=== PATIENT | female | born 1990 | race Caucasian/White ===

== ENCOUNTER 2016-12-01 05:52 | Emergency (ER) | payer SELFPAY ==
[~2016-12-01] VITALS: Ht 154.9 cm; Wt 44.1 kg
[2016-12-01 05:59] VITALS: TEMP 97.3
[2016-12-01 06:44] LABS: BASO # 0.1 (0.0-0.2); BASO % 0.4 % (0.0-2.0); EOS # 0.1 (0.0-0.7); EOS % 0.5 % (0-4.0); GRAN # 11.1 (1.4-6.5); GRAN % 82.4 % (42.2-75.2); HEMATOCRIT 37.7 % (37.0-47.0); HEMOGLOBIN 12.5 g/dl (12.5-16.0); LYMPH # 1.8 (1.2-3.4); MEAN CELL VOLUME 89 fl (80.0-100.0); MEAN CORPUSCULAR HEMOGLOBIN 29 pg (27.0-31.0); MEAN CORPUSCULAR HGB CONC 33 g/dl (33.0-37.0); MEAN PLATELET VOLUME 10.9 fl (7.4-10.4); MONO # 0.5 (0.1-0.6); MONO % 3.4 % (1.7-9.3); PLATELET COUNT 234 K/mm3 (130-400); RED BLOOD COUNT 4.25 M/mm3 (4.10-5.30); REDCELL DISTRIBUTION WIDTH-CV 11.9 % (11.5-14.5); WHITE BLOOD COUNT 13.5 K/mm3 (4.8-10.8)
[2016-12-01 06:46] LABS: ALBUMIN 4.3 gm/dL (3.5-5.0); BILIRUBIN,TOTAL 0.4 mg/dL (0.0-1.0); CALCIUM 9.2 mg/dL (8.4-10.2); CREATININE, serum 0.69 mg/dL (0.52-1.25); POTASSIUM 3.5 mmol/L (3.4-5.0); TOTAL PROTEIN 7.3 gm/dL (6.4-8.2)
[2016-12-01] MEDS ORDERED: ZOFRAN 4MG T4 MG/TAB PO (07:13)
[2016-12-01 07:29] LABS: MAGNESIUM 1.8 mg/dL (1.6-2.3); PHOSPHOROUS 2.5 mg/dL (2.5-4.5)
[2016-12-01 08:25] LABS: PH 6 (5-8); SQUAMOUS EPITHELIAL 20-50 /hpf; URINE APPEARANCE Cloudy; URINE BACTERIA Rare /hpf; URINE BILIRUBIN Negative (NEGATIVE); URINE BLOOD Negative (NEGATIVE); URINE COLOR Yellow; URINE GLUCOSE Negative (NEGATIVE); URINE KETONE 2+ (NEGATIVE); URINE UROBILINOGEN Negative (NEGATIVE); URINE WBC 0-2 /hpf
[2016-12-01 09:43] VITALS: BP 106/50; PULSE 70
== END 2016-12-01 09:46 | disposition home or self-care (01) ==
LOC: COL.ER 05:52
PROVIDERS: Emergency Medicine
DX: R10.13 Epigastric pain (principal); R11.2 Nausea with vomiting, unspecified; K21.9 Gastro-esophageal reflux disease without esophagitis; Z87.19 Personal history of other diseases of the digestive system
CPT/HCPCS: J2405; J2550; J3010; J7030; J7040

== ENCOUNTER 2018-05-11 06:45 | Observation (INO) | payer SELFPAY ==
[~2018-05-11] VITALS: Ht 154.9 cm; Wt 49.0 kg
[~2018-05-11 06:45] MED LIST: ZOFRAN 4MG T4 MG/TAB PO
[2018-05-11] MEDS ORDERED: PRILOSEC 20MG20 MG PO (07:05)
[2018-05-11] MEDS ORDERED: YASMIN 3 MG-0.01 TAB PO (07:06)
[2018-05-11 07:36] LABS: BASO % 0.3 % (0.0-2.0); EOS % 0.2 % (0-4.0); GRAN # 10.2 (1.4-6.5); GRAN % 86.2 % (42.2-75.2); HEMATOCRIT 38.3 % (37.0-47.0); HEMOGLOBIN 12.7 g/dl (12.5-16.0); LYMPH # 1.2 (1.2-3.4); MEAN CELL VOLUME 86 fl (80.0-100.0); MEAN CORPUSCULAR HEMOGLOBIN 29 pg (27.0-31.0); MEAN CORPUSCULAR HGB CONC 33 g/dl (33.0-37.0); MEAN PLATELET VOLUME 11.2 fl (7.4-10.4); MONO # 0.3 (0.1-0.6); MONO % 2.9 % (1.7-9.3); PLATELET COUNT 195 K/mm3 (130-400); RED BLOOD COUNT 4.45 M/mm3 (4.10-5.30); REDCELL DISTRIBUTION WIDTH-CV 12.7 % (11.5-14.5)
[2018-05-11 07:53] LABS: ALANINE AMINOTRANSFERASE 12 U/L (9-52); ALBUMIN 4.4 gm/dL (3.5-5.0); ALKALINE PHOSPHATASE 56 U/L (50-136); ANION GAP 11 mmol/L (7-16); AST,SGOT 18 U/L (15-37); BILIRUBIN,TOTAL 0.2 mg/dL (0.0-1.0); BLOOD UREA NITROGEN 14 mg/dL (7-17); CALCIUM 9.2 mg/dL (8.4-10.2); CARBON DIOXIDE 23 mmol/L (22-30); CHLORIDE 104 mmol/L (98-107); CREATININE, serum 0.68 mg/dL (0.52-1.25); GLUCOSE 156 mg/dL (74-106); LIPASE 56 U/L (23-300); POTASSIUM 3.6 mmol/L (3.4-5.0); SODIUM 138 mmol/L (137-145); TOTAL PROTEIN 7.6 gm/dL (6.4-8.2)
[2018-05-11 07:54] LABS: C-REACTIVE PROTEIN < 0.5 mg/dL (0.0-0.9)
[2018-05-11 08:51] LABS: COLLECTION METHOD CLEAN CATCH
[2018-05-11 08:56] LABS: MUCOUS Present /lpf; PH 5 (5-8); SQUAMOUS EPITHELIAL 0-2 /hpf; URINE APPEARANCE Hazy; URINE BACTERIA None Seen /hpf; URINE BILIRUBIN Negative (NEGATIVE); URINE BLOOD Negative (NEGATIVE); URINE COLOR Yellow; URINE GLUCOSE Negative (NEGATIVE); URINE KETONE 2+ (NEGATIVE); URINE LEUKOCYTE ESTERASE Negative (NEGATIVE); URINE NITRATE Negative (NEGATIVE); URINE PROTEIN(semi-quant) Negative (NEGATIVE); URINE RBC 0-2 /hpf; URINE UROBILINOGEN Negative (NEGATIVE)
[2018-05-11 13:13] VITALS: BP 103/58; PULSE 73; TEMP 99
[2018-05-11 16:17] VITALS: BP 114/56; PULSE 54; TEMP 99.7
--- NOTE | 2018-05-11 17:00 | NUR ---
Arrived to the room at this time. Initial assessment completed. Dr. Muhammad and Dr. Vasquez here to assess the patient. Plan for IVF, medication intervention and EGD in the am at 0730. Tomasz Cash is at the bedside and the patient is resting.
[2018-05-11 18:54] VITALS: BP 99/59; PULSE 75; TEMP 98.8
--- NOTE | 2018-05-11 19:38 | NUR ---
Report given to GLENDY Cuba to resume care.
--- NOTE | 2018-05-11 19:40 | NUR ---
Resting in bed with boyfriend at bedside. Assessment complete. Lungs clear. Heart sounds normal. Bowels active x4. Pulses strong throughout. No edema noted. Denies pain at this time. Denies needs. Call light in reach.
[2018-05-11 21:46] LABS: TRICYCLIC ANTIDEPRESS URINE NEGATIVE
--- NOTE | 2018-05-11 23:00 | NUR ---
Resting in bed. Provided with reglan. Patient states she would like to wait on EGD until talking with social workers in AM regarding cost of procedure. Denies other needs at this time. Call light in reach.
[2018-05-11 23:11] VITALS: BP 105/60; PULSE 82; TEMP 98.1
[2018-05-11 23:24] VITALS: BP 112/74; PULSE 65; TEMP 99.4
[2018-05-12] VITALS (7 sets, daily range): BP systolic 92–138; BP diastolic 47–80; PULSE 55–72; TEMP 97.5–99.1
--- NOTE | 2018-05-12 03:30 | NUR ---
DIGITAL COMMENTATOR reports patient retching, without emesis. Upon assessment. Patient sitting in bed rocking. Reports increased nausea. Provided basin with water to rinse mouth. Receiving schedule medications as ordered. Retching resolved at this time. Denies other needs. Call light in reach.
--- NOTE | 2018-05-12 04:30 | NUR ---
Patient reports continued retching without emesis. Provided reglan as order. Will monitor.
[2018-05-12 06:30] LABS: BASO % 0.3 % (0.0-2.0); GRAN # 6.9 (1.4-6.5); HEMOGLOBIN 11.3 g/dl (12.5-16.0); LYMPH # 1.6 (1.2-3.4); LYMPH % 17.1 % (20.0-51.0); MEAN CELL VOLUME 86 fl (80.0-100.0); MEAN CORPUSCULAR HEMOGLOBIN 29 pg (27.0-31.0); MEAN CORPUSCULAR HGB CONC 33 g/dl (33.0-37.0); MEAN PLATELET VOLUME 12.3 fl (7.4-10.4); MONO # 0.8 (0.1-0.6); MONO % 8.2 % (1.7-9.3); PLATELET COUNT 178 K/mm3 (130-400); RED BLOOD COUNT 3.95 M/mm3 (4.10-5.30); REDCELL DISTRIBUTION WIDTH-CV 12.9 % (11.5-14.5)
[2018-05-12 06:42] LABS: HEMATOCRIT 33.9 % (37.0-47.0)
[2018-05-12 06:53] LABS: CALCIUM 8.6 mg/dL (8.4-10.2); CREATININE, serum 0.62 mg/dL (0.52-1.25); POTASSIUM 3.3 mmol/L (3.4-5.0)
--- NOTE | 2018-05-12 07:28 | NUR ---
Dr. Balderrama notified at 0645 patient does not want to do EGD until speaking with social work case manager regarding cost of procedure. Report given to GLENDY Zhu. Patient nausous throughout night. Given zofran, benadryl, phenergan, and reglan as ordered. Resting in bed this AM with boyfriend at bedside. Call light in reach.
--- NOTE | 2018-05-12 08:10 | NUR ---
Pt lying in bed with eyes closed, awakens to verbal stimuli. Pt complaining of nausea. Medication administered. Morning assessment completed, pt denies any pain, breathing even and unlabored. Pt wants to speak with marriage and family social worker about help with paying for medical bills, very worried about paying because she has no insurance. Will let marriage and family social worker know. Call light in reach.
--- NOTE | 2018-05-12 08:45 | NUR ---
This Rn performed physical assessment, asked about her history with this nausea and use of cannaboids. Pt states she used to "use ignitable marijuanna but I quit that around when I had the fundoplication in [place]". Since then she reports vaping and using concentrated substance. She used to vape 3-4 times in the morning and 3-4 in the evening for her nausea that was still present, then pt stated, "I've cut back significantly, now I only do 1-2 in the morning and 3-4 in the evening". She reports changing her control from Madalyn for her ovarian cysts to Nicolette 21, and thinks her current condition is due to symptoms listed under this medication. pt grew somewhat agitated when this RN suggested the marijuana could be playing a role in her medical status, she stated, " I know it's not that because I've stopped it before and with home tests I know it only takes one week to get out of my system. Also everyone says a hot shower will help nausea if it's caused by pot, and my hot showers didn't make any difference". boyfriend at bedside agrees, and states,"our current usage is nothing compared to what we used to intake, and we doubt its the marijuana or else we would have had these issues earlier when we were consuming so much more". No further needs or questions, vitals stable, will continue to monitor.
--- NOTE | 2018-05-12 14:27 | NUR ---
ZAIN met with patient about discharge planning. Patient is a [employer] student and lives here in [place] with 3 roommates. Patient utilizes [facility] for primary care and she obtains prescriptions from [facility]. Patient does not use any home health services or DME. ZAIN inquired if patient would like ZAIN to inform [facility] that she is hospitalized. Patient reports she would. ZAIN then contacted [facility] and informed them of patient being hospitalzed. ZAIN does not anticipate any discharge needs.
--- NOTE | 2018-05-12 14:55 | NUR ---
Pt called about pump beeping, pt in bed dry heaving. Pump had been beeping soon after start of potassium 40 min ago. Flushed site and wrapped with coban. Reminded to hit call light as soon as beeping begins. Will continue to monitor.
--- NOTE | 2018-05-12 15:57 | NUR ---
This Rn has reviewed documentation for Bailey Goodrich and agrees with findings
--- NOTE | 2018-05-12 18:20 | NUR ---
Spoke with pt about EGD at noon tomorrow. Pt agreed to procedure, informed on phone.
--- NOTE | 2018-05-12 19:00 | NUR ---
Report received from GLENDY Avalos
--- NOTE | 2018-05-12 20:47 | NUR ---
Standing at bedside. Patient nausated with retching no emesis. Provided all schedule medications as ordered. Complains of 6/10 ABD pain. Provided PRN morphine at this time. Assessment complete. Lungs clear. Heart sounds normal. Bowels active x4. Pulses strong throughout. No edema noted. Patient sleepy after infusion of morphine. Denies other needs. Will closely monitor.
--- NOTE | 2018-05-12 23:30 | NUR ---
Resting in bed. Vs taken. Denies needs at this time. Call light in reach.
--- NOTE | 2018-05-13 01:55 | NUR ---
Resting in bed asleep with boyfriend at bedside. Phenergan started at this time.
[2018-05-13 03:29] VITALS: BP 115/66; PULSE 55; TEMP 98.6
--- NOTE | 2018-05-13 06:09 | NUR ---
Patient resting in bed this AM. Nausea with dry retching throughout night. Provided with scheduled medications and x2 doses of morphine 2mg. Reports x2 episodes of diarrhea starting at 0550 with ABD pain. Would like EGD done today. Provided patient with water to rinse mouth. Denies other needs at this time. Call light in reach. Boyfriend at bedside. Will monitor.
[2018-05-13 06:30] LABS: BASO % 0.2 % (0.0-2.0); GRAN # 5.6 (1.4-6.5); GRAN % 63.1 % (42.2-75.2); HEMOGLOBIN 10.8 g/dl (12.5-16.0); LYMPH # 2.4 (1.2-3.4); LYMPH % 27.4 % (20.0-51.0); MEAN CELL VOLUME 86 fl (80.0-100.0); MEAN CORPUSCULAR HEMOGLOBIN 29 pg (27.0-31.0); MEAN CORPUSCULAR HGB CONC 33 g/dl (33.0-37.0); MEAN PLATELET VOLUME 12.4 fl (7.4-10.4); MONO # 0.8 (0.1-0.6); PLATELET COUNT 187 K/mm3 (130-400); RED BLOOD COUNT 3.79 M/mm3 (4.10-5.30); REDCELL DISTRIBUTION WIDTH-CV 13.2 % (11.5-14.5)
[2018-05-13 06:39] LABS: HEMATOCRIT 32.7 % (37.0-47.0)
[2018-05-13 06:40] LABS: CALCIUM 8.7 mg/dL (8.4-10.2); CREATININE, serum 0.57 mg/dL (0.52-1.25); POTASSIUM 3.9 mmol/L (3.4-5.0)
--- NOTE | 2018-05-13 06:47 | NUR ---
Report given to Sim RN
[2018-05-13 07:16] VITALS: BP 136/89; PULSE 76; TEMP 97.9
--- NOTE | 2018-05-13 09:45 | NUR ---
Pt complains of nausea with wretching. Abdominal pain 6 related to wretching. VS WNL. Pt is NPO for EGD scheduled at 1000.
[2018-05-13 10:50] VITALS: BP 135/75; PULSE 58; TEMP 98.9
--- NOTE | 2018-05-13 11:38 | NUR ---
Patient down for EGD. Patient received 2mg morphine, stating abdominal pain all over. patient is anxious about procedure. Stated she has had an EGD and colonoscopy before but is anxious today. Boyfriend has been by her side all morning.
--- NOTE | 2018-05-13 13:00 | NUR ---
PATIENT IS BACK FROM EGD PROCEDURE. REPORT TAKEN FROM GLENDY NEWELL. PATIENT IS A&O, STATES SHE IS NOT IN PAIN CURRENTLY AND THE NAUSEA HAS CALMED DOWN. PATIENT UP TO BATHROOM, AMBULATED WELL WITH BOYFRIEND AND THIS NURSE BY SIDE. PATIENT WILL HAVE GASTRIC EMPTYING STUDY IN THE MORNING. THE PROCEDURE WAS EXPALINED. PATIENT HAS NO OTHER NEEDS AT THIS TIME.
[2018-05-13 15:38] VITALS: BP 133/77; PULSE 51; TEMP 98
--- NOTE | 2018-05-13 16:43 | NUR ---
Patient is resting in bed. patients diet has been changed back to clear liquids and she said she will try to take in something. Pt will go back to NPO at midnight for tomorrows procedure. Pt is feeling a little less nauseous.
--- NOTE | 2018-05-13 19:06 | NUR ---
Report received from GLENDY Molina
[2018-05-13 19:47] VITALS: BP 118/81; PULSE 106; TEMP 98.3
--- NOTE | 2018-05-13 21:59 | NUR ---
Resting in bed. Assessment complete. Lungs clear. Heart sounds normal. Bowels active x4. Pulses strong throughout. No edema noted. Patient reports mild nausea. Provided scheduled medications as ordered. LR infusing at 125ml/hr into right AC without complications. Report 2/10 ABD pain at this time. Denies other needs. Call light in reach. BoyfriendTomasz at bedside.
[2018-05-13 22:47] VITALS: BP 134/73; PULSE 67; TEMP 98.3
--- NOTE | 2018-05-13 23:20 | NUR ---
Resting in bed. Denies needs at this time. Call light reach.
--- NOTE | 2018-05-14 02:10 | NUR ---
Resting in bed. Denies needs. Call light in reach.
[2018-05-14 02:31] VITALS: BP 135/87; PULSE 50; TEMP 97.8
--- NOTE | 2018-05-14 05:00 | NUR ---
Resting in bed. Denies needs. Call light in reach.
--- NOTE | 2018-05-14 06:35 | NUR ---
Patient to [facility] for gastric emptying study via wheelchair.
--- NOTE | 2018-05-14 07:00 | NUR ---
Reported on to GLENDY Corbett.
--- NOTE | 2018-05-14 07:12 | NUR ---
Report given to Sim PIKE. Patient had uenventful night. No dry retching. In Nuc. Med this AM for gastric empty study.
--- NOTE | 2018-05-14 09:05 | NUR ---
Pt reports pain along belt line upon returning from GET. Pain 6. Will administer warm pack. Bowel sounds present and active x 4. Pt states that she started her menses today. She has not taken her control since admit three days ago. Her menses is approximately three days early. Pt complains of some nausea. Telemetry on. INT CDI right AC. No SCDs/Teds.
[2018-05-14 09:18] VITALS: BP 123/80; PULSE 55; TEMP 98.1
[2018-05-14 11:00] VITALS: BP 127/71; PULSE 65; TEMP 98.2
--- NOTE | 2018-05-14 11:00 | NUR ---
Patient back from gastric emptying study. Study was complete after hour, food moving through quickly. Patient is A&O, denies chest pain, SOB, still has some nausea. Stated she tolerated clear liquids for dinner well last night, ate slow. Started her period and has been emotional and cramping. Recently off control and period came early. Patient is a little tired. Boyfriend at bedside. Denies other needs at this time.
--- NOTE | 2018-05-14 11:32 | NUR ---
Pt reports decreased pain (from 6 to 3) with use of warm pack on abdomen for menses cramping.
--- NOTE | 2018-05-14 12:00 | NUR ---
Dr. Henson rounded and explained plan of care. Patient and boyfriend have a lot of questions regarding next steps after all procedures have been cleared. Diet advanced to full liquids and if tolerated mechanical soft.
--- NOTE | 2018-05-14 12:29 | NUR ---
Reported off To GLENDY Corbett.
[2018-05-14 15:02] VITALS: BP 125/88; PULSE 66; TEMP 97.4
[2018-05-14] MEDS ORDERED: PAMELOR 25MG25 MG PO (15:40)
[2018-05-14] MEDS ORDERED: ZOFRAN ODT8 MG PO (15:40)
[2018-05-14] MEDS ORDERED: PHENERGAN 25 TA25 MG PO (16:09)
--- NOTE | 2018-05-14 17:16 | NUR ---
Dr. Henson has discussed plan of care with patient. The patient and her boyfriend have agreed to follow up with Dr. Balderrama after discharge to discuss further plans. patient is tolerating full liquids and soft diet as of now. Discharge orders were put in, discussed with patient the ability to discharge. The boyfriend works from 5 to midnight and wondered if she could leave then. Informed them they would incur another days charge for being at the hospital for after midnight. pt and boyfriend are discussing ability to get her home so she isn't alone for most of the evening. Waiting to hear from patient about what they would like to do. Patient states she feels less nauseous but is eating slow.
--- NOTE | 2018-05-14 18:38 | NUR ---
Discharge orders have been processed, patient is waiting on ride. IV discontinued with no complications, catheter tip intact. tele removed. Discharge instructions were reviewed and questions answered. Patient has no other needs at this time.
[2018-05-14 18:56] VITALS: BP 122/76; PULSE 71; TEMP 98.3
== END 2018-05-14 19:15 | disposition home or self-care (01) ==
LOC: COL.ER 06:45 → MEDICAL 12:04
PROVIDERS: Family Medicine; Physician Assistant; ADMIT Family Medicine
DX: K44.9 Diaphragmatic hernia without obstruction or gangrene (principal); K21.9 Gastro-esophageal reflux disease without esophagitis; F12.90 Cannabis use, unspecified, uncomplicated; R11.2 Nausea with vomiting, unspecified; E87.6 Hypokalemia; D72.829 Elevated white blood cell count, unspecified; R00.1 Bradycardia, unspecified; Z83.79 Family history of other diseases of the digestive system
CPT/HCPCS: A9541; C9113; G0378; J1200; J1650; J2250; J2270; J2405; J2550; J2765; J3010; J3480; J7030; J7120; Q9967